=== PATIENT | female | born 1950 | race American Indian/Alaskan Native ===

== ENCOUNTER 2017-02-03 10:15 | Outpatient (CLI) | payer OTHER ==
--- NOTE | 2017-02-03 12:56 | Mammography Report ---
Bilateral mammogram and left breast ultrasound: The patient position the history of a clear left nipple discharge and nipple crusting. Routine views with focal compression left breast imaging demonstrates a heterogeneously dense breast pattern bilaterally. The right breast pattern is generally unremarkable. The left nipple is slightly lobulated and according to the technologist the scan is somewhat denuded. No evidence of retroareolar mass or ductal dilatation noted. There is a focal area of numerous slightly pleomorphic calcifications in the anterior superior breast. There are numerous other more scattered calcifications which do not appear overtly suspicious although some appear to be in a linear configuration. There is no focal mass and no architectural distortion. Left breast ultrasound is echogenically unremarkable. CAD used. Impression: 1. Indeterminate grouping of left breast calcifications. 2. Numerous other less suspicious calcifications. 3. No obvious source for left breast discharge. Recommendation: This patient's prior exams are being requested for comparison. The final recommendation will be made when comparison is made. BI-RADS CATEGORY: 0 = Needs additional imaging evaluation ACR BI-RADS MAMMOGRAPHIC CODES: 0 = Needs additional imaging evaluation; 1 = Negative; 2 = Benign; 3 = Probably benign; 4 = Suspicious; 5 = Malignant; 6 = Known biopsy-proven malignancy COMMENT: 1. Dense breast tissue, i.e., adenosis, fibrocystic changes, etc., may obscure an underlying neoplasm. 2. Approximately 10% of cancers are not detected with mammography. 3. A negative mammography report should not delay biopsy if a clinically suspicious mass is present.
== END 2017-02-03 10:16 | disposition home or self-care (01) ==
LOC: MAMMO 10:15
PROVIDERS: ATTEND Obstetrics & Gynecology
DX: N64.52 Nipple discharge (principal); R92.1 Mammographic calcification found on diagnostic imaging of breast; Z80.3 Family history of malignant neoplasm of breast
CPT/HCPCS: 76641; G0204; 77066

== ENCOUNTER 2019-01-14 17:46 | Emergency (ER) | payer MEDICARE, OTHER ==
[2019-01-14] MEDS ORDERED: IPRATROPIUM/ALBUTEROL SULFATE 3 ML AMPUL.NEB IH ONE ×3 (18:33→23:21)
[2019-01-14] MEDS ORDERED: predniSONE 20 MG TAB PO ONE (18:33)
--- NOTE | 2019-01-14 18:34 | Emergency Department Report ---
ED Shortness of Breath HPI - General Chief Complaint: Dyspnea/Respdistress Stated Complaint: DIFFICULTY BREATHING Time Seen by Provider: 01/14/19 18:23 Source: patient, EMS Mode of arrival: Ambulatory Limitations: No Limitations - History of Present Illness Initial Comments: This is a 68-year-old -[place] female who presents to the emergency room with dyspnea and cough for one month. Past medical history of asthma and bronchitis. Patient states she was using her inhaler 4-6 times a day which is lower than usual. 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 Logan Sheikh yesterday who referred her to a shop tailor apprentice. Patient states she has not been able to make an appointment just yet. Reports cough as nonproductive and rhinorrhea. States symptoms usually occur when season change. Denies sore throat, fever, chills, chest pain, palpitations, nausea or vomiting. MD Complaint: shortness of breath, cough Onset/Timin -: month(s) Improves With: bronchodilators Worsens With: lying flat, coughing Known History Of: asthma Associated Symptoms: cough Treatments Prior to Arrival: bronchodilator - Related Data Home Oxygen Therapy: No Previous Rx's Medication Instructions Recorded Last Taken Type ALBUTEROL Inhaler (OR & NICU) 2 puff IH QID PRN #1 inhalation 01/14/19 Unknown Rx [ProAir HFA Inhaler] Benzonatate [Tessalon Perles] 100 mg PO Q8HR PRN #30 capsule 01/14/19 Unknown Rx methylPREDNISolone [Medrol 4MG 4 mg PO DAILY #1 tab.ds.pk 01/14/19 Unknown Rx DOSEPAK (21 tabs)] Allergies Allergy/AdvReac Type Severity Reaction Status Date / Time No Known Allergies Allergy Unverified 02/03/17 10:16 ED Review of Systems ROS: Stated complaint: DIFFICULTY BREATHING Other details as noted in HPI Constitutional: denies: chills, fever Respiratory: cough, shortness of breath. denies: orthopnea, wheezing Cardiovascular: denies: chest pain, palpitations Gastrointestinal: denies: abdominal pain, nausea, diarrhea Skin: denies: rash, lesions Neurological: denies: headache, weakness, paresthesias Psychiatric: denies: anxiety, depression ED Past Medical Hx - Past Medical History Previous Medical History?: Yes Hx Congestive Heart Failure: Yes Hx of Cancer: Yes (Lt breast) - Surgical History Past Surgical History?: Yes - Social History Smoking Status: Never Smoker - Medications Home Medications: Home Medications Medication Instructions Recorded Confirmed Last Taken Type ALBUTEROL Inhaler (OR & NICU) 2 puff IH QID PRN #1 inhalation 01/14/19 Unknown Rx [ProAir HFA Inhaler] Benzonatate [Tessalon Perles] 100 mg PO Q8HR PRN #30 capsule 01/14/19 Unknown Rx methylPREDNISolone [Medrol 4MG 4 mg PO DAILY #1 tab.ds.pk 01/14/19 Unknown Rx DOSEPAK (21 tabs)] ED Physical Exam - General Limitations: No Limitations General appearance: alert, in no apparent distress - Respiratory Respiratory exam: Present: rhonchi. Absent: stridor, chest wall tenderness, accessory muscle use, decreased breath sounds - Cardiovascular Cardiovascular Exam: Present: regular rate, normal rhythm. Absent: systolic murmur, diastolic murmur, rubs, gallop - GI/Abdominal GI/Abdominal exam: Present: soft, normal bowel sounds - Neurological Exam Neurological exam: Present: alert, oriented X3 - Psychiatric Psychiatric exam: Present: normal affect, normal mood - Skin Skin exam: Present: warm, dry, intact, normal color. Absent: rash ED Course Vital Signs 01/14/19 01/14/19 01/14/19 15:35 16:00 18:10 Temperature Pulse Rate Pulse Rate [ Anterior] Respiratory Rate Respiratory Rate [Anterior] Blood Pressure 114/74 114/74 123/74 Blood Pressure [Left] O2 Sat by Pulse 98 100 95 Oximetry 01/14/19 01/14/19 01/14/19 18:17 19:20 20:00 Temperature 97.5 F L 97.6 F Pulse Rate 94 H 82 68 Pulse Rate [ Anterior] Respiratory 30 H 23 21 Rate Respiratory Rate [Anterior] Blood Pressure 130/85 110/71 Blood Pressure 102/62 [Left] O2 Sat by Pulse 93 96 99 Oximetry 01/14/19 01/14/19 01/14/19 20:30 21:01 21:02 Temperature Pulse Rate 72 68 Pulse Rate [ 72 Anterior] Respiratory 15 17 Rate Respiratory 15 Rate [Anterior] Blood Pressure 110/71 110/71 Blood Pressure [Left] O2 Sat by Pulse 99 100 Oximetry ED Medical Decision Making - Radiology Data Radiology results: report reviewed CHEST 1 VIEW INDICATION / CLINICAL INFORMATION: dyspnea, cough, r/o pneumonia. COMPARISON: None available. FINDINGS: SUPPORT DEVICES: None. HEART / MEDIASTINUM: No significant abnormality. LUNGS / PLEURA: No significant pulmonary or pleural abnormality. No pneumothorax. ADDITIONAL FINDINGS: No significant additional findings. IMPRESSION: 1. No acute findings. - Medical Decision Making Patient examined by me and within slight distress. History of Asthma and colitis. Vitals stable. Increase use of bronchodilator. Given DuoNeb treatments 2 and prednisone. Chest x-ray obtained with no acute cardiopulmonary findings. Patient reports feeling better. Lungs clear on reassessment. Asthma exacerbation, Start albuterol and prednisone taper. Discharged home stable. Instructed to follow up with PCP and follow up with pulmonary as instructed by cardiology. Critical care attestation.: If time is entered above; I have spent that time in minutes in the direct care of this critically ill patient, excluding procedure time. ED Disposition Clinical Impression: Cough in adult Asthma exacerbation Qualifiers: Asthma severity: moderate Asthma persistence: persistent Qualified Code(s): J45.41 - Moderate persistent asthma with (acute) exacerbation Dyspnea Qualifiers: Dyspnea type: shortness of breath Qualified Code(s): R06.02 - Shortness of breath; R06.00 - Dyspnea, unspecified; R06.01 - Orthopnea Disposition: DC- TO HOME OR SELFCARE Is pt being admited?: No Does the pt Need Aspirin: No Condition: Stable Instructions: Asthma (ED) Additional Instructions: It is important to use inhaler or have active albuterol inhaler and avoiding asthma triggers. Complete full course of prednisone steroids as prescribed. Follow up with Primary Care Provider in 24-72 hours. Prescriptions: methylPREDNISolone [Medrol 4MG DOSEPAK (21 tabs)] 4 mg PO DAILY #1 tab.ds.pk ALBUTEROL Inhaler (OR & NICU) [ProAir HFA Inhaler] 2 puff IH QID PRN #1 inhalation PRN Reason: Shortness Of Breath Benzonatate [Tessalon Perles] 100 mg PO Q8HR PRN #30 capsule PRN Reason: Cough Referrals: NOBLE ARANDA MD [Staff Physician] - 3-5 Days [facility] [Provider Group] - 3-5 Days MITALI HATCH MD [Staff Physician] - 3-5 Days Time of Disposition: 22:45
--- NOTE | 2019-01-14 19:22 | XRay Report ---
CHEST 1 VIEW INDICATION / CLINICAL INFORMATION: dyspnea, cough, r/o pneumonia. COMPARISON: None available. FINDINGS: SUPPORT DEVICES: None. HEART / MEDIASTINUM: No significant abnormality. LUNGS / PLEURA: No significant pulmonary or pleural abnormality. No pneumothorax. ADDITIONAL FINDINGS: No significant additional findings. IMPRESSION: 1. No acute findings. Signer Name: Caleb Young MD Signed: 01/14/2019 7:17 PM Workstation Name: [id number]
[2019-01-15 00:30] VITALS: BP 102/64
== END 2019-01-15 | disposition home or self-care (01) ==
LOC: ED 17:46
DX: J45.901 Unspecified asthma with (acute) exacerbation (principal); I50.9 Heart failure, unspecified; Z85.3 Personal history of malignant neoplasm of breast
CPT/HCPCS: 71045; 94640; 99284; J7512; 94644